=== PATIENT | female | born 1960 | race African-American/Black ===

== ENCOUNTER 2017-02-02 01:48 | Emergency (ER) | payer OTHER ==
[~2017-02-02] VITALS: Ht 182.9 cm; Wt 73.9 kg
[2017-02-02 03:25] VITALS: BP 150/92
[2017-02-02] MEDS ORDERED: KETOROLAC TROMETH 60MG/2ML VIAL IM ONE ×2 (03:30→03:39)
== END 2017-02-02 04:06 | disposition home or self-care (01) ==
LOC: ER 01:51
DX: M25.531 Pain in right wrist (principal); R51 Headache; J45.909 Unspecified asthma, uncomplicated; Z90.710 Acquired absence of both cervix and uterus; Z90.49 Acquired absence of other specified parts of digestive tract; W19.XXXA Unspecified fall, initial encounter; Y93.89 Activity, other specified; Y99.8 Other external cause status; Y92.89 Other specified places as the place of occurrence of the external cause
CPT/HCPCS: 70450; 73030; 73090; 73110; 96372; 99284; J1885